=== PATIENT | female | born 1985 | race Caucasian/White ===

== ENCOUNTER → 2021-09-22 14:45 | Outpatient (CLI) | payer BC, SELFPAY ==
--- NOTE | ~2021-09-22 | XR_ITS ---
XR thoracic spine 2V DATE: 09/22/2021 15:02 INDICATION: Skin paresthesias. Numbness of both feet. TECHNIQUE: AP and lateral views COMPARISON: 09/22/2021 cervical spine FINDINGS: Normal alignment of the thoracic spine. There is mild degenerative spurring. There is sligh t dextroscoliosis. No fracture or bone destruction is evident. The thoracic pedicles are intact. No paraspinal soft tiss ue thickening. IMPRESSION: Minimal dextroscoliosis Mild degenerative spurring Reviewed, dictated and finalized at location [facility].
--- NOTE | ~2021-09-22 | XR_ITS ---
XR_CERV2-3V_CR DATE: 09/22/2021 15:02 INDICATION: Bilateral foot numbness TECHNIQUE: AP, open-mouth, lateral and swimmer views COMPARISON: None FINDINGS: There is straightening and minimal levoscoliosis of the cervical spine. C1 and C2 are normally aligned and the odontoid process is intact. No fracture or dislocation or lock ed facet or prevertebral soft tissue swelling. There is minimal degenerative disc disease at C2-3, C3-4 Moderately severe degenerative disease with mild retrolisthesis at C5-6 and C6-7. Moderate bilateral uncovertebral joint spurring at C5-6 and C6-7. IMPRESSION: Moderately severe degenerative disc disease and mild retrolisthesis at C5-6 and C6-7 Moderate uncovertebral joint spurring bilaterally at C5-6 and C6-7 Reviewed, dictated and finalized at [facility]. Reviewed, dictated and finalized at location A.
--- NOTE | ~2021-09-22 | XR_ITS ---
XR lumbar spine 2-3V DATE: 09/22/2021 15:02 INDICATION: Skin paresthesias. Bilateral foot numbness. TECHNIQUE: AP, lateral, coned lateral lumbosacral views COMPARISON: None FINDINGS: There is straightening of the lumbar spine. There is mild degenerative spurring. No fracture or bone destruction is evident. The lumbar pedicles are intact. Probable small cyst of the superior vertebral endplate of L4. There is mild degenerative disc disease at the lumbar interspaces. The L5-S1 interspace is well prese rved. The sacroiliac joints are intact. IUD is noted. IMPRESSION: Mild degenerative change of the lumbar spine Reviewed, dictated and finalized at location A.
== END ==
PROVIDERS: PCP Nurse Practitioner Family; Visit Provider Nurse Practitioner Family
DX: M54.9 Dorsalgia, unspecified (principal); R20.2 Paresthesia of skin; M50.322 Other cervical disc degeneration at C5-C6 level; M77.8 Other enthesopathies, not elsewhere classified; M41.84 Other forms of scoliosis, thoracic region
CPT/HCPCS: 72040; 72070; 72100

== ENCOUNTER 2021-10-20 15:35 | Outpatient (CLI) | payer BC, SELFPAY ==
--- NOTE | ~2021-10-20 | MR_ITS ---
EXAMINATION: MR thoracic spine wo con DATE: 10/20/2021 16:27 INDICATION: Paresthesias of skin. Dorsalgia. TECHNIQUE: Magnetic resonance imaging (MRI) of the thoracic spine was performed without intravenous c ontrast. COMPARISON: Thoracic spine radiographs 09/22/2021 FINDINGS: There is 2 mm retrolisthesis of C6 on C7. There is mild chronic anterior wedging of T8 and T9 vertebral bodies associated with Schmorl's nodes. There is mildly decreased disc height at C6-C7 a nd C7-T1 and from T5-T6 through T8-T9. There is a hemangioma in T2 vertebral body. There is multileve l mild facet joint osteoarthritis. On the right, there is mild neural foraminal stenosis at T2-T3 and T3-T4. On the left, there is mild neural foraminal stenosis at T3-T4. At C6-C7, the disc is bulging with annular fissure and severe central canal stenosis. There is increased T2-weighted signal intensi ty in the spinal cord at C6-C7. At C7-T1, there is a right central extrusion with mild central canal stenosis. The distant mildly bulging at T7-T8 and T8-T9 with mild central canal stenosis. The conus m edullaris is at L1. IMPRESSION: 1. Increased T2-weighted signal intensity in the spinal cord at C6-C7, likely myelomalacia secondary to spondylosis. Cervical spine MRI without and with contrast is recommended. 2. Mild thoracic spondylosis. Reviewed, dictated and finalized at location A. IMPRESSION: 1. Increased T2-weighted signal intensity in the spinal cord at C6-C7, likely m yelomalacia secondary to spondylosis. Cervical spine MRI without and with contr ast is recommended. 2. Mild thoracic spondylosis.
--- NOTE | ~2021-10-20 | MR_ITS ---
EXAMINATION: MR lumbar spine wo con DATE: 10/20/2021 16:27 INDICATION: Paresthesias of skin. Dorsalgia. TECHNIQUE: Magnetic resonance imaging (MRI) of the lumbar spine was performed without intravenous con trast. Sequences included sagittal T2-weighted FSE, sagittal T2-weighted FS FSE, sagittal T1-weighted FSE, and axial T2-weighted FSE. COMPARISON: Lumbar spine radiographs 09/22/21 FINDINGS: Bone alignment is normal. There are Schmorl's nodes from L2-L3 through L5-S1. There is mild ly decreased disc height at L2-L3 and L3-L4. The distal spinal cord signal intensity is normal. The c onus medullaris is at L1. The following disc levels are specifically discussed: L1-L2: The disc does not extend beyond the endplate margin. There is mild bilateral facet joint osteo arthritis. There is no neural foraminal stenosis. There is no central canal stenosis. L2-L3: The disc is bulging. There is mild bilateral facet joint osteoarthritis. There is mild bilater al neural foraminal stenosis. There is mild central canal stenosis. L3-L4: The disc is bulging and has an annular fissure. There is mild bilateral facet joint osteoarthr itis. There is mild bilateral neural foraminal stenosis. There is mild central canal stenosis. L4-L5: The disc does not extend beyond the endplate margin. There is mild bilateral facet joint osteo arthritis. There is no neural foraminal stenosis. There is no central canal stenosis. L5-S1: The disc does not extend beyond the endplate margin. There is moderate right and mild left fac et joint osteoarthritis. There is no neural foraminal stenosis. There is no central canal stenosis. IMPRESSION: 1. Mild lumbar spondylosis. Reviewed, dictated and finalized at location A. IMPRESSION: 1. Mild lumbar spondylosis.
== END 2021-10-20 15:36 | disposition home or self-care (01) ==
LOC: ANHIMG 15:37
PROVIDERS: PCP Nurse Practitioner Family; Visit Provider Nurse Practitioner Family
DX: R20.2 Paresthesia of skin (principal); M47.815 Spondylosis without myelopathy or radiculopathy, thoracolumbar region; M48.05 Spinal stenosis, thoracolumbar region; M47.817 Spondylosis without myelopathy or radiculopathy, lumbosacral region; M48.07 Spinal stenosis, lumbosacral region; M48.54XA Collapsed vertebra, not elsewhere classified, thoracic region, initial encounter for fracture
CPT/HCPCS: 72146; 72148

== ENCOUNTER 2021-11-01 06:40 | Outpatient (CLI) | payer BC, SELFPAY ==
--- NOTE | ~2021-11-01 | MR_ITS ---
EXAMINATION: MR cervical spine wo/w con DATE: 11/01/2021 07:54 INDICATION: Myelomalacia of the cervical spinal cord. TECHNIQUE: Magnetic resonance imaging (MRI) of the cervical spine was performed without and with 13 m m MultiHance intravenous contrast. COMPARISON: Thoracic spine MRI 10/20/2021, cervical spine radiographs 09/22/21 FINDINGS: There is 2 mm retrolisthesis of C5 on C6. Vertebral body heights are normal. There is a hem angioma in T1 involving the vertebral body and posterior elements. There is moderately decreased disc height at C5-C6 and mildly decreased disc height at C6-C7. There is increased T2-weighted signal int ensity in the spinal cord centered at C6-C7, consistent with myelomalacia. The following disc levels are specifically discussed: C2-C3: The disc does not extend beyond the endplate margin. There is no uncovertebral joint osteoarth ritis. There is mild bilateral facet joint osteoarthritis. There is no neural foraminal stenosis. The re is no central canal stenosis. C3-C4: The disc does not extend beyond the endplate margin. There is mild right uncovertebral joint o steoarthritis. There is mild bilateral facet joint osteoarthritis. There is mild right neural foramin al stenosis. There is no central canal stenosis. C4-C5: There is a left central extrusion. There is mild left uncovertebral joint osteoarthritis. Ther e is no facet joint osteoarthritis. There is no neural foraminal stenosis. There is mild central sammi l stenosis with ventral indentation of spinal cord. C5-C6: The disc is bulging. There is severe bilateral uncovertebral joint osteoarthritis. There is no facet joint osteoarthritis. There is mild right and moderate left neural foraminal stenosis. There i s moderate central canal stenosis with ventral and dorsal indentation of the spinal cord. C6-C7: The disc is bulging. There is severe bilateral uncovertebral joint osteoarthritis. There is no facet joint osteoarthritis. There is moderate bilateral neural foraminal stenosis. There is severe c entral canal stenosis with ventral and dorsal indentation of the spinal cord and increased signal in the cord. C7-T1: There is a right central extrusion. There is no uncovertebral joint osteoarthritis. There is m ild bilateral facet joint osteoarthritis. There is no neural foraminal stenosis. There is mild centra l canal stenosis. IMPRESSION: 1. Myelomalacia centered at C6-C7. 2. Severe cervical spondylosis. Reviewed, dictated and finalized at location A.
== END 2021-11-01 06:41 | disposition home or self-care (01) ==
PROVIDERS: PCP Family Medicine; Visit Provider Nurse Practitioner Family
DX: R93.7 Abnormal findings on diagnostic imaging of other parts of musculoskeletal system (principal); G95.89 Other specified diseases of spinal cord; M47.812 Spondylosis without myelopathy or radiculopathy, cervical region
CPT/HCPCS: 72156; A9577